=== PATIENT | female | born 1970 | race Two or more races ===

== ENCOUNTER 2018-11-20 14:39 | Emergency (ER) | payer MEDICAID ==
[~2018-11-20] VITALS: Ht 175.3 cm; Wt 71.3 kg
--- NOTE | 2018-11-20 15:03 | NUR ---
CHARGE NURSE NOTIFIED OF STROKE ALERT, ONSET AT 1230 TODAY
--- NOTE | 2018-11-20 15:49 | NUR ---
pt arrived as a level 1 stroke. stroke nurse yogi at bedside to assess pt. after assessment spoke to Dr Bruce and changed to level 2 stroke. pt has hadblurred vision since 1230 and headache x 5 days. [id number]-ct 1529-ekg 1534-xray at bedside 1351- dr bruce at bedside.
[2018-11-20] MEDS ORDERED: dexamethasone sod phosphate 10mg/ml inj IV STA (15:56)
[2018-11-20 15:57] LABS: BASOPHILS % (AUTO) 0.2 % (0-1); EOSINOPHILS # (AUTO) 0.2 X10'3 (0-0.9); EOSINOPHILS % (AUTO) 2.7 % (0-6); HEMATOCRIT 38.6 % (35.0-45.0); HEMOGLOBIN 12.7 g/dl (12.0-16.0); LYMPHOCYTES # (AUTO) 2.6 X10'3 (1.1-4.8); LYMPHOCYTES % (AUTO) 33.9 % (21-51); MEAN CORPUSCULAR HEMOGLOBIN 26.7 PG (27.0-31.0); MEAN CORPUSCULAR HGB CONC 32.9 g/dL (33.0-36.5); MEAN CORPUSCULAR VOLUME 81.2 FL (78-98); MEAN PLATELET VOLUME 7.4 FL (7.4-10.4); MONOCYTES # (AUTO) 0.4 X10'3 (0-0.9); MONOCYTES % (AUTO) 5.4 % (2-12); NEUTROPHILS # (AUTO) 4.4 X10'3 (1.8-7.7); NEUTROPHILS % (AUTO) 57.8 % (42-75); PLATELET COUNT 315 X10'3 (140-440); RED BLOOD COUNT 4.75 X10'6 (4.20-5.60); RED CELL DISTRIBUTION WIDTH 14.3 % (11.5-14.5); WHITE BLOOD COUNT 7.7 X10'3 (4.5-11.0)
[2018-11-20] MEDS ORDERED: proCHLORperazine 10 MG/2 ml inj IV ONE (16:00)
[2018-11-20] MEDS ORDERED: ketorolac trometh. 30mg/ml inj. IV ONE (16:00)
[2018-11-20] MEDS ORDERED: diphenhydrAMINE 50 mg/ml inj IV ONE (16:00)
[2018-11-20] MEDS ORDERED: normal saline 1000ML IV soln IVB ONE (16:00)
[2018-11-20 16:12] LABS: ALANINE AMINOTRANSFERASE 35 U/L (12-78); ALBUMIN 3.9 G/DL (3.4-5.0); ALKALINE PHOSPHATASE 87 IU/L (46-116); ANION GAP 7 (8-16); ASPARTATE AMINO TRANSFERASE 26 U/L (10-37); BILIRUBIN,TOTAL 0.3 MG/DL (0.1-1.0); BLOOD UREA NITROGEN 20 MG/DL (7-18); BUN/CREATININE RATIO 26.3 (6.6-38.0); CALCIUM 9.7 MG/DL (8.5-10.1); CHLORIDE 101 MMOL/L (99-107); CREATININE 0.76 MG/DL (0.40-0.90); GLUCOSE 87 MG/DL (70-104); POTASSIUM 4.2 MMOL/L (3.5-5.1); SODIUM 136 MMOL/L (135-145); TOTAL CARBON DIOXIDE 28.1 MMOL/L (24-32); eGFR 81 ML/MIN
[2018-11-20 16:13] LABS: PARTIAL THROMBOPLASTIN TIME 27 SECONDS (22-32)
[2018-11-20 16:15] LABS: TROPONIN I < 0.04 NG/ML (0.0-0.05)
[2018-11-20 17:35] VITALS: BP 122/43
== END 2018-11-20 17:38 | disposition home or self-care (01) ==
LOC: ER 14:39
DX: R51 Headache (principal); H53.8 Other visual disturbances; Z86.73 Personal history of transient ischemic attack (TIA), and cerebral infarction without residual deficits
CPT/HCPCS: 36415; 70450; 71045; 80053; 82948; 84484; 85025; 85610; 85730; 93005; 96374; 96375; 99284; J0780; J1100; J1200; J1885; J7030